=== PATIENT | male | born 1960 | race Caucasian/White ===

== ENCOUNTER 2018-03-28 09:27 | Emergency (ER) | payer SELFPAY ==
[~2018-03-28] VITALS: Ht 170.2 cm; Wt 76.8 kg
[2018-03-28 09:31] VITALS: BP 101/56; TEMP 98.2
[2018-03-28] MEDS ORDERED: DILAUDID 4MG TAB4 MG PO (09:51)
[2018-03-28] MEDS ORDERED: XANAX .25M0.25 MG/TA PO (09:51)
[2018-03-28] MEDS ORDERED: CARISOPRODOL PO (09:52)
[2018-03-28] MEDS ORDERED: PROAIR HFA0.09 MG/AC IH (09:52)
[2018-03-28] MEDS ORDERED: [UNRECOGNIZED DRUG - OTHER] PO (09:52)
[2018-03-28] MEDS ORDERED: ZOCOR5 MG PO (09:52)
[2018-03-28] MEDS ORDERED: DOXYCYCLINE 10100 MG PO (10:39)
[2018-03-28] MEDS ORDERED: CEPHALEXIN500 M1 PO (10:39)
[2018-03-28 11:28] VITALS: PULSE 76
== END 2018-03-28 11:28 | disposition home or self-care (01) ==
LOC: COL.ER 09:27
DX: L02.413 Cutaneous abscess of right upper limb (principal); F17.210 Nicotine dependence, cigarettes, uncomplicated; F41.9 Anxiety disorder, unspecified; E78.5 Hyperlipidemia, unspecified; Z90.89 Acquired absence of other organs; Z79.82 Long term (current) use of aspirin